=== PATIENT | male | born 1960 | race Caucasian/White ===

== ENCOUNTER 2018-05-16 10:11 | Emergency (ER) | payer OTHER ==
[2018-05-16 10:53] LABS: BASO # 0.1 10^3/uL (0.0-0.2); BASO % 1.1 % (0.0-1.0); EOS # 0.2 10^3/uL (0.0-0.50); EOS % 2.5 % (0.0-3.0); HEMATOCRIT 43.7 % (42.0-52.0); IMMATURE GRANULOCYTE % 0.4 % (0-3.0); LYMPH # 1.6 10^3/uL (1.5-4.5); LYMPH % 20.9 % (24.0-44.0); MEAN CORPUSCULAR HEMOGLOBIN 30.3 pg (27.0-33.0); MEAN CORPUSCULAR VOLUME 94.6 fl (80.0-96.0); MONO # 0.5 10^3/uL (0.0-0.8); MONO % 6.3 % (0.0-5.0); NEUTROPHILS # 5.2 10^3/uL (1.8-7.7); NEUTROPHILS % 68.8 % (36.0-66.0); PLATELET COUNT, AUTOMATED 219 10^3/uL (150-450); RED BLOOD COUNT 4.62 10^6/uL (4.30-6.10); RED CELL DISTRIBUTION WIDTH 13.7 % (11.5-14.5); WHITE BLOOD COUNT 7.5 10^3/uL (4.0-10.0)
[2018-05-16 11:14] LABS: ANION GAP 7 MEQ/L (8-16); BLOOD UREA NITROGEN 13 MG/DL (7-18); CALCIUM LEVEL 8.4 MG/DL (8.5-10.1); CARBON DIOXIDE LEVEL 27 MEQ/L (21-32); CHLORIDE LEVEL 109 MEQ/L (98-107); GLOMERULAR FILTRATION RATE > 60.0 (>56); GLUCOSE, FASTING 189 MG/DL (70-100); POTASSIUM SERUM 4.2 MEQ/L (3.5-5.1); SODIUM LEVEL 143 MEQ/L (136-145)
[2018-05-16 11:18] LABS: LACTIC ACID SEPSIS PROTOCOL 1.7 MMOL/L (0.4-2.0)
== END 2018-05-16 11:55 | disposition home or self-care (01) ==
LOC: M ED 10:11
DX: L02.416 Cutaneous abscess of left lower limb (principal); Z86.718 Personal history of other venous thrombosis and embolism; Z79.899 Other long term (current) drug therapy; Z79.01 Long term (current) use of anticoagulants; Z88.0 Allergy status to penicillin; Z88.5 Allergy status to narcotic agent; Z88.8 Allergy status to other drugs, medicaments and biological substances
CPT/HCPCS: 83605

== ENCOUNTER → 2018-05-20 | Outpatient (CLI) | payer OTHER ==
[2018-05-20 14:50] LABS: INR 1.36
== END ==
LOC: M LAB 14:11
DX: Z86.718 Personal history of other venous thrombosis and embolism (principal)
CPT/HCPCS: 85610

== ENCOUNTER → 2018-08-01 | Outpatient (CLI) | payer OTHER | LOC: M RAD 13:38 | DX: I87.312 Chronic venous hypertension (idiopathic) with ulcer of left lower extremity (principal); I82.512 Chronic embolism and thrombosis of left femoral vein; L97.929 Non-pressure chronic ulcer of unspecified part of left lower leg with unspecified severity | CPT/HCPCS: 93971 ==

== ENCOUNTER → 2018-09-14 | Outpatient (REF) | payer OTHER ==
[~2018-09-14] MED LIST: CLEO300C2 PO; DURA50DI2; OMEP40CA2; OXYB10TA; OXYCOD/APAP; PROBCAP2 PO; XARE10TA
[2018-09-14 12:14] LABS: APPEARANCE, URINE CLEAR (CLEAR); BACTERIA, URINE AUTO NEGATIVE (NEGATIVE); BILIRUBIN, URINE AUTO NEGATIVE (NEGATIVE); BLOOD, URINE BLOOD NEGATIVE (NEGATIVE); COLOR, URINE YELLOW (YELLOW); GLUCOSE, URINE (UA) AUTO NEGATIVE (NEGATIVE); KETONE, URINE AUTO NEGATIVE (NEGATIVE); LEUKOCYTE ESTERASE, URINE AUTO NEGATIVE (NEGATIVE); MUCUS, URINE SMALL (NEGATIVE); NITRITE, URINE AUTO NEGATIVE (NEGATIVE); PROTEIN, URINE AUTO NEGATIVE (NEGATIVE); RBC, URINE AUTO 0 /HPF (0-3); SQUAMOUS EPITHELIAL CELL UR AU 0 /HPF (0-6); UROBILINOGEN, URINE AUTO 0.2 mg/dL (0.0-2.0); WBC, URINE AUTO 1 /HPF (0-3)
[2018-09-14 12:38] LABS: MALB URINE SIEMENS 9.3 MG/L; MAU/CREAT RATIO 5.5 MCG/MG (0.0-30.0)
== END ==
LOC: M SFHCPLAZ 11:23
PROVIDERS: ATTEND Family Medicine
DX: R30.0 Dysuria (principal); E11.69 Type 2 diabetes mellitus with other specified complication

== ENCOUNTER → 2018-09-15 | Outpatient (REF) | payer OTHER ==
[2018-09-15 12:57] LABS: BASO # 0.1 10^3/uL (0.0-0.2); EOS # 0.2 10^3/uL (0.0-0.50); EOS % 2.6 % (0.0-3.0); HEMATOCRIT 43.4 % (42.0-52.0); HEMOGLOBIN 14.1 g/dl (13.5-17.5); LYMPH % 24.8 % (24.0-44.0); MEAN CORPUSCULAR HGB CONC 32.5 g/dl (32.0-36.5); MEAN CORPUSCULAR VOLUME 92.3 fl (80.0-96.0); MONO # 0.6 10^3/uL (0.0-0.8); MONO % 7.2 % (0.0-5.0); NEUTROPHILS # 5.1 10^3/uL (1.8-7.7); NEUTROPHILS % 64.1 % (36.0-66.0); PLATELET COUNT, AUTOMATED 263 10^3/uL (150-450); WHITE BLOOD COUNT 7.9 10^3/uL (4.0-10.0)
[2018-09-15 13:15] LABS: CHOLESTEROL RISK RATIO 3.628 (<5); FREE T4 1.02 NG/DL (0.76-1.46); PROSTATIC SPECIFIC AG MONITOR 0.26 NG/ML (< 4.00); THYROID STIMULATING HORMONE 0.797 uIU/ML (0.358-3.740)
[2018-09-15 13:40] LABS: HEMOGLOBIN A1c 7.9 %
[2018-09-15 15:25] LABS: TOTAL 25(OH) VITAMIN D 34.5 NG/ML (30.0-100.0)
[2018-09-16 14:42] LABS: ANTINUCLEAR ANTIBODIES DIRECT Negative (Negative)
== END ==
LOC: M SFHCPLAZ 09:17
PROVIDERS: ATTEND Family Medicine
DX: M32.9 Systemic lupus erythematosus, unspecified (principal); R53.82 Chronic fatigue, unspecified; E11.69 Type 2 diabetes mellitus with other specified complication; Z13.220 Encounter for screening for lipoid disorders; Z85.46 Personal history of malignant neoplasm of prostate

== ENCOUNTER → 2018-09-28 | Outpatient (CLI) | payer OTHER ==
[2018-09-28 14:20] LABS: BLOOD UREA NITROGEN 11 MG/DL (7-18); CALCIUM LEVEL 8.7 MG/DL (8.5-10.1); CARBON DIOXIDE LEVEL 32 MEQ/L (21-32); CHLORIDE LEVEL 103 MEQ/L (98-107); CREATININE FOR GFR 0.93 MG/DL (0.70-1.30); GLOMERULAR FILTRATION RATE > 60.0 (>56); GLUCOSE, FASTING 164 MG/DL (70-100); POTASSIUM SERUM 4.6 MEQ/L (3.5-5.1); SODIUM LEVEL 139 MEQ/L (136-145)
== END ==
LOC: M SMT 10:34
PROVIDERS: ATTEND Nurse Practitioner Women's Health
DX: R97.21 Rising PSA following treatment for malignant neoplasm of prostate (principal)

== ENCOUNTER → 2018-10-06 | Outpatient (CLI) | payer OTHER ==
--- NOTE | 2018-10-06 13:15 | REP ---
LOW DOSE LUNG SCREENING CT: Low dose lung screening CT exam performed in the axial plane. Lung windows are evaluated. There are no prior studies. There is mild scattered interstitial fibrosis bilaterally. Tiny subpleural nodular opacity in the region of the superior segment of the right lower lobe measures 3 mm and is not of clinical significance. There is fissural thickening inferiorly and laterally on the left. No suspicious nodular opacities of consolidation is seen. Heart is normal in size. Thoracic aorta is normal in caliber with no aneurysm. Mediastinal contours are unremarkable. There are degenerative changes of the spine. Incidental note is made of a cyst of the upper pole of the left kidney as seen on prior CT of the abdomen 01/30/2016. IMPRESSION: ACR [address] No suspicious nodule. A 3 mm subpleural nodular density in the region of the superior segment of the right lower lobe is not of clinical significance. Followup low dose lung screening CT recommended in 12 months. Electronically Signed by Rikki Estes MD 10/07/2018 10:19 A
== END ==
LOC: M RAD 10:47
PROVIDERS: ATTEND Family Medicine
DX: Z12.2 Encounter for screening for malignant neoplasm of respiratory organs (principal); F17.210 Nicotine dependence, cigarettes, uncomplicated; N28.1 Cyst of kidney, acquired; R91.1 Solitary pulmonary nodule; M47.9 Spondylosis, unspecified

== ENCOUNTER → 2018-10-17 | Outpatient (CLI) | payer OTHER ==
[~2018-10-17] MED LIST changes: +ISOVUE-370 76% 100ML VIAL (Q9967) As Ordered ONE
--- NOTE | 2018-10-17 10:41 | REP ---
Clinical: History of prostate cancer with rising PSA levels. Technique: Axial contrast enhanced images from the lung bases to the pubic symphysis using 100 ml Isovue 370 intravenous contrast material with precontrast and delayed images of the abdomen as well as coronal and sagittal re-formations. Comparison: 01/30/2016. Findings: Lung bases are clear. Visualized heart and pericardium normal. Diffuse fatty infiltration to the liver noted without focal hepatic lesion identified. Spleen, pancreas, gallbladder, and bilateral adrenal glands are normal. Kidneys demonstrate simple bilateral cysts measuring up to 6 cm in left kidney and 4.2 cm in the right kidney. The enteric system is without obstruction or acute inflammatory process. There is evidence for ventral hernia repair. Normal terminal ileum and appendix are identified in the right lower quadrant. Scattered colonic and sigmoid diverticulosis noted without acute diverticulitis. Pelvis demonstrates normal bladder and evidence for prior prostatectomy. No ascites. No free air. No intraperitoneal or significant retroperitoneal adenopathy is appreciated. Atherosclerotic changes to the aorta and vasculature noted without aneurysm or dissection. Prominent bilateral inguinal adenopathy (left greater than right) with enhancing lymph nodes measuring up to 2.3 cm diameter and suspicious for underlying pathology. The musculoskeletal structures demonstrate diffuse degenerative changes primarily involving the thoracolumbar spine and pelvis/hips without obvious focal osseous abnormality identified. Impression: 1. Bilateral inguinal adenopathy (left greater than right) requires further evaluation. 2. No further evidence for recurrence or metastasis identified. Specifically, no ascites, no focal mass lesion, and no new significant intraperitoneal or retroperitoneal adenopathy noted. 3. Hepatic steatosis without focal hepatic lesion. 4. Large bilateral simple renal cysts. 5. Colonic diverticulosis without acute diverticulitis. Electronically Signed by Cristian Verma MD 10/17/2018 10:32 A
--- NOTE | 2018-10-17 17:16 | REP ---
Whole body radionuclide bone scan: History: Rising PSA level. Prostate malignancy. Pelvic and perineal pain. No comparison bone scan. Technique: 20.4 mCi technetium 99m MDP is injected and standard whole body bone scan imaging was acquired. Scintigraphic findings: Photopenia is noted associated with a right knee arthroplasty. There is arthritic uptake in the left knee medially and laterally. Minimal arthritic uptake is seen in the hips. There is intense increased uptake in three linearly opposed anterior ribs on the right involving rib numbers 3, 4, and 5. These are consistent with healing fractures. There is some degenerative uptake in the posterior facets in the mid cervical spine on the left consistent with osteoarthritis. There is uptake in bilateral kidneys and in the urinary bladder. There is no evidence to suggest skeletal metastatic disease. Degenerative spondylosis uptake is seen in the lumbar spine. Impression: No evidence to suggest skeletal metastasis. Electronically Signed by Adolfo Heaton MD 10/17/2018 05:47 P
== END ==
LOC: M RAD 09:18
PROVIDERS: ATTEND Nurse Practitioner Women's Health
DX: K76.0 Fatty (change of) liver, not elsewhere classified (principal); N28.1 Cyst of kidney, acquired; R59.0 Localized enlarged lymph nodes; R10.2 Pelvic and perineal pain; Z85.46 Personal history of malignant neoplasm of prostate; K57.30 Diverticulosis of large intestine without perforation or abscess without bleeding
CPT/HCPCS: 74178; Q9967

== ENCOUNTER → 2018-11-10 | Outpatient (CLI) | payer OTHER ==
[~2018-11-10] MED LIST changes: +COMBAER6 INH; -DURA50DI2; +DURA50DI2 TOP; -ISOVUE-370 76% 100ML VIAL (Q9967) As Ordered ONE; -OMEP40CA2; +OMEP40CA2 PO; -OXYB10TA; +OXYB10TA PO; +PERCOCET PO; +SALMDISK INH; +SPIR1CAP INH; -XARE10TA; +XARE10TA PO
--- NOTE | 2018-11-14 12:38 | RADONC ---
RADIATION ONCOLOGY CONSULTATION NOTE DATE: 11/10/2018 CHART NUMBER: [id number] DIAGNOSIS: Prostate cancer. STAGE: Recurrent. ECOG PERFORMANCE STATUS: Zero. CONSULTATION NOTE: Mr. Dumas is a 58-year-old white male with the diagnosis of what appears to be a recurrent stage III C, T2c, N0, M0, Howland score 9 (4-5), grade group 5 adenocarcinoma of the prostate with an initial PSA score of 5.07, who underwent a robotic-assisted laparoscopic radical prostatectomy on 06/05/2015 and is now presenting for what is thought to be a biochemical recurrence. HISTORY OF PRESENT ILLNESS: The patient was in his usual state of health until routine PSA was done on 03/05/2015 and found to be 5.07. On 04/24/2015, the patient underwent prostatic needle biopsy and pathology revealed a Howland score 9 (4-5) adenocarcinoma of the prostate involving multiple biopsy sites on the right. Biopsies of the left side of the prostate showed no evidence of malignancy. On 06/05/2015, the patient underwent a da True robotic-assisted laparoscopic radical prostatectomy as well as pelvic lymph node dissection. Pathology revealed at that time a Howland score 7 (4-3) adenocarcinoma with tertiary grade 5 adenocarcinoma in the prostate bilaterally. The tumor was bilateral multifocal. Approximately 25% of the specimen had tumor in it. There was no evidence of extraprostatic extension. There was no evidence of lymph vascular invasion. All surgical margins were negative. Peripheral margin was negative but the tumor was less than 1 mm from the inked margin of resection. Seminal vesicles were negative for malignancy as were the vas deferens. A total of eight right pelvic lymph nodes were sampled and were negative for malignancy and a total of seven left pelvic lymph nodes were sampled and were also negative for malignancy. The patient reports that he has had severe pain and suffering since his laparoscopic surgery 4 years ago. He has been on Fentynl patches and oxycodone since. Apparently, he has been somewhat lost to followup and I do not have any of his subsequent PSA studies except for the most recent. Apparently, the patient was transferred to the care of Claude Garrido MD, our urologist and a PSA was done on 09/15/2018 that turned out to be 0.26. A bone scan was done on 10/17/2014 that showed no evidence of metastatic disease, and on 10/17/[address] of abdomen and pelvis, which showed no evidence of recurrence or pelvic disease. There was some bilateral inguinal lymphadenopathy present with left greater than the right. This was read as somewhat suspicious. The patient and his report that he has had shiny palpable lymph nodes in the inguinal regions bilaterally which have come and gone since his surgery and right now are no longer palpable. He reports that these have not changed and are nontender. PAST MEDICAL HISTORY: The patient's past medical history is positive for arthritis, diabetes and DVTs. He reports that he had a hernia repair in 2016. He also had one in 2015. He had some right shoulder rotator cuff repair in 2013 and in 2010, he had a left shoulder rotator cuff repair. He also reports that he had carpal tunnel surgery done in both hands and in 1997 had a total right knee replacement. He reports that he had a left hand surgery in 1992. ALLERGIES: The patient is allergic to TRAMADOL, PENICILLIN, MORPHINE, HYDROCODONE, GABAPENTIN, METFORMIN, and JANUVIA. SOCIAL HISTORY: The patient continues to smoke cigars every day. He had been smoking four packs of cigarettes per day for 40 years. He reports that he does not abuse alcohol. FAMILY HISTORY: The patient's family history is positive for a mother with skin cancer and father with prostate cancer. REVIEW OF SYSTEMS: The patient is clicked every box on review of systems. He reports anorexia and a 70-pound weight loss over 4 years. He reports continuous lower abdominal and pelvic pain. He reports his skin problems and indeed has multiple sores over his whole body. He reports headaches, chest pain, weakness in the arms and legs, fevers and chills, decreased energy, hearing loss, pains all over his body, pains in his joints, swollen glands, shortness of breath, discomfort upon urination, and frequent urination. PHYSICAL EXAMINATION: The patient is a well-developed, well-nourished white male, in no acute distress, who is presenting to us today. He has multiple excoriations of the skin of his arms and entire body. HEENT exam is normocephalic, atraumatic. Extraocular movements are intact. There is no palpable cervical, supraclavicular, infraclavicular or inguinal lymphadenopathy present. Lungs: Clear to auscultation and percussion. His heart has regular rate and rhythm. His abdomen is benign with no hepatosplenomegaly, masses or tenderness. Rectal examination reveals a normal anal sphincter tone. His prostate bed is smooth with no evidence of nodularity. Extremities reveal no clubbing, cyanosis or edema. ASSESSMENT: Mr. Dumas is presenting to us today now with what appears to have originally been a very high grade prostatic adenocarcinoma status post resection with negative margins, negative lymph nodes, negative seminal vesicles and no extracapsular extension. At this time, I do not have a complete picture of this patient. I have only one PSA level, which was 0.26, done on 09/15/2018. I have no PSA studies done from the time of surgery onward. I have no physician notes from the time of surgery onward until he was seen by our Dr. Garrido. In light of this, I have ordered a new PSA to be done today, which may help us to see whether or not it is rising. It is now 2 months since his previous PSA. In addition, I will try and obtain previous studies from Dr. Garrido's office as well as his previous urologist offices as well. I suspect from the note from Dr. Garrido that this has been a rising PSA level and I was simply not privy at this time to all the documentation. Assuming this patient does have a biochemical failure with a rising PSA level, he would qualify as a candidate for postoperative radiation therapy in attempt to increase the likelihood of achieving local control. I did discuss with the patient in detail the potential benefits as well as possible acute and chronic sequelae of external beam radiation therapy. We discussed logistics of treatment planning, simulation subsequent fractionated daily radiation treatments. I have asked our nurse to obtain further information on this patient with regards to his followup post surgery. I am quite concerned with the level of narcotics this patient has been taking for the last 4-5 years. He has had a laparoscopic surgery 4 years ago and since has been on fentynal patches as well as oxycodone. 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 I do not think that this is a good option for this patient. I am unsure as to the reason for his pain and during his course of treatment will see about setting him up perhaps with some type of pain management clinic. My concern highlights the fact that radiation will be given to this region increasing discomfort. This may lead to poor compliance with our radiation regimen. Thank you for allowing us to participate in the care of this very pleasant gentleman. I will look forward with working with you closely in his care. As always, warm regards. cc: MD Johanne Prajapati MD MTDD
== END ==
LOC: M ONCR 09:01
PROVIDERS: ATTEND Radiology Radiation Oncology
DX: C61 Malignant neoplasm of prostate (principal)

== ENCOUNTER → 2018-11-16 | Outpatient (CLI) | payer OTHER ==
--- NOTE | 2018-11-16 14:36 | PFTRPT ---
Height: 70.00 Inches Weight: 235.00 Lbs BSA: 2.24 Diagnosis: J44.9 DATE OF PROCEDURE: 11/16/2018 ORDERED BY: Johanne Gonzalez MD Spirometry: Pre and post bronchodilator study of excellent technical quality. Forced vital capacity reduced. FEV1 out of proportion. Obstructive index is, therefore, reduced. Flow Volume Loop: Expiratory limb of the flow volume loop consistent with flow rate limitation. Only borderline bronchodilator response identified. Lung Volumes: Total lung capacity mildly elevated. Residual volume consistent with air trapping. Diffusing Capacity: Diffusing capacity significantly reduced and does not completely correct for alveolar volume. Hemoglobin: No hemoglobin available for correction. Airway Mechanics: Airway resistance elevated with a concomitant decrease in airway conductance. IMPRESSION: Mild obstructive ventilatory impairment with underlying air trapping and diffusing capacity impairment. Please correlate clinically. MTDD
== END ==
LOC: M CARPUL 13:51
PROVIDERS: ATTEND Family Medicine
DX: J44.9 Chronic obstructive pulmonary disease, unspecified (principal)

== ENCOUNTER → 2018-11-22 | Outpatient (CLI) | payer OTHER ==
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
== END ==
LOC: M PAIN 09:00
PROVIDERS: ATTEND Anesthesiology
DX: M25.511 Pain in right shoulder (principal); M25.512 Pain in left shoulder; G89.29 Other chronic pain; M17.12 Unilateral primary osteoarthritis, left knee; E11.9 Type 2 diabetes mellitus without complications; J44.9 Chronic obstructive pulmonary disease, unspecified; K21.9 Gastro-esophageal reflux disease without esophagitis; F17.210 Nicotine dependence, cigarettes, uncomplicated; Z79.01 Long term (current) use of anticoagulants; Z79.891 Long term (current) use of opiate analgesic; Z79.899 Other long term (current) drug therapy; Z88.0 Allergy status to penicillin; Z88.5 Allergy status to narcotic agent; Z88.8 Allergy status to other drugs, medicaments and biological substances; Z91.09 Other allergy status, other than to drugs and biological substances; Z85.46 Personal history of malignant neoplasm of prostate; Z87.820 Personal history of traumatic brain injury

== ENCOUNTER → 2018-12-20 | Outpatient (RCR) | payer OTHER ==
[2018-11-21 13:29] LABS: HEMATOCRIT 42.6 % (42.0-52.0); HEMOGLOBIN 13.8 g/dl (13.5-17.5); LYMPH % 19.1 % (24.0-44.0); MEAN CORPUSCULAR HEMOGLOBIN 30.5 pg (27.0-33.0); MEAN CORPUSCULAR HGB CONC 32.4 g/dl (32.0-36.5); MEAN CORPUSCULAR VOLUME 94.1 fl (80.0-96.0); NEUTROPHILS # 5.9 10^3/uL (1.8-7.7); NEUTROPHILS % 74.3 % (36.0-66.0); RED BLOOD COUNT 4.53 10^6/uL (4.30-6.10); WHITE BLOOD COUNT 7.9 10^3/uL (4.0-10.0)
--- NOTE | 2018-11-22 14:28 | RADONC ---
RADIATION ONCOLOGY SIMULATION NOTE DATE: 11/21/2018 CHART NUMBER: [id number] SIMULATION NOTE: Mr. Dumas was taken to the CT scan for CT simulation of his prostate field. CT was accomplished without difficulty or discomfort. Radiation treatment planning is underway and radiation treatments will begin subsequently. An immobilization device was created and will be used throughout the course of treatment. It was created without difficulty or discomfort. I was physically present throughout the course of simulation.
--- NOTE | 2018-12-14 11:12 | RADONC ---
RADIATION ONCOLOGY PROGRESS NOTE DATE: 12/13/2018 CHART NUMBER: [id number] PROGRESS NOTE: Mr. Dumas is presently at a dose of 1260 cGy to his prostate bed and is tolerating treatments quite well at this point with no complaints other than fatigue related to his radiation therapy. He is having no increased difficulty with urination or bowel movements. REVIEW OF SYSTEMS: The patient's review of systems is noncontributory except for fatigue. Denies nausea, vomiting, fevers, chills, night sweats, diplopia, headaches, anxiety or depression, anorexia, weight loss, visual disturbances, chest pain, urinary or bowel difficulties, bone pain, or neurological problems. PHYSICAL EXAMINATION: The patient's skin is in good condition with no evidence of moist or dry desquamation. The remainder of his physical exam remains unchanged. Mr. Dumas is tolerating treatments quite well and radiation will continue as scheduled.
[2018-12-19 11:20] LABS: APPEARANCE, URINE HAZY (CLEAR); BACTERIA, URINE AUTO NEGATIVE (NEGATIVE); BILIRUBIN, URINE AUTO NEGATIVE (NEGATIVE); BLOOD, URINE BLOOD 1+ (NEGATIVE); COLOR, URINE YELLOW (YELLOW); GLUCOSE, URINE (UA) AUTO NEGATIVE (NEGATIVE); KETONE, URINE AUTO NEGATIVE (NEGATIVE); LEUKOCYTE ESTERASE, URINE AUTO TRACE (NEGATIVE); MUCUS, URINE SMALL (NEGATIVE); NITRITE, URINE AUTO NEGATIVE (NEGATIVE); PROTEIN, URINE AUTO NEGATIVE (NEGATIVE); RBC, URINE AUTO 4 /HPF (0-3); SPECIFIC GRAVITY URINE AUTO 1.025 (1.002-1.035); SQUAMOUS EPITHELIAL CELL UR AU 0 /HPF (0-6); WBC, URINE AUTO 13 /HPF (0-3)
--- NOTE | 2018-12-21 08:09 | RADONC ---
RADIATION ONCOLOGY PROGRESS NOTE DATE: 12/19/2018 CHART NUMBER: [id number] PROGRESS NOTE: Mr. Dumas is presently at a dose of 1980 cGy to his prostate bed and is complaining of urinary frequency and burning. REVIEW OF SYSTEMS: The patient's review of systems is positive for urinary burning but is otherwise noncontributory. Denies nausea, vomiting, fevers, chills, night sweats, diplopia, headaches, anxiety or depression, anorexia, weight loss, visual disturbances, chest pain, urinary or bowel difficulties, bone pain, or neurological problems. PHYSICAL EXAMINATION: The patient's skin is in good condition with no evidence of moist or dry desquamation. The remainder of his physical exam remains unchanged. Mr. Dumas is tolerating treatments quite well and radiation will continue as scheduled.
== END ==
LOC: M ONCR 11-21 13:01
PROVIDERS: ATTEND Radiology Radiation Oncology
DX: C61 Malignant neoplasm of prostate (principal)

== ENCOUNTER → 2019-01-20 | Outpatient (RCR) | payer OTHER ==
--- NOTE | 2018-12-26 11:33 | RADONC ---
RADIATION ONCOLOGY PROGRESS NOTE DATE: 12/26/2018 CHART NUMBER: [id number] PROGRESS NOTE: Mr. Dumas is presently at a dose of 2880 cGy to his prostate bed and is tolerating treatments quite well at this point with no new complaints related to his radiation therapy. He continues to complain of pelvic pain, which has gone on since his surgery, for which he has taken fentynal patches and multiple other narcotics for the past several years. This is not new. REVIEW OF SYSTEMS: The patient's review of systems is noncontributory. Denies nausea, vomiting, fevers, chills, night sweats, diplopia, headaches, anxiety or depression, anorexia, weight loss, visual disturbances, chest pain, urinary or bowel difficulties, bone pain, or neurological problems. PHYSICAL EXAMINATION: The patient's skin is in good condition with no evidence of radiation change present. There is no moist or dry desquamation. The remainder of the physical exam remains unchanged. Mr. Dumas is tolerating treatments quite well and radiation will continue as scheduled.
--- NOTE | 2019-01-02 14:07 | RADONC ---
RADIATION ONCOLOGY PROGRESS NOTE DATE: 01/02/2019 CHART NUMBER: [id number] Mr. Dumas, with adenocarcinoma of the prostate, is currently receiving local regional radiotherapy. His current dose is 3780 cGy of an anticipated 6660 cGy. The patient notes some minimal irritation, but basically no significant untoward side effects. REVIEW OF SYSTEMS: He denies any nausea, vomiting, diarrhea. He does have some minimal dysuria but denies hematuria or blood per rectum. His energy level is such that he is able to maintain most day-to-day activities without any alteration of his lifestyle. Skin irritation is denied. EXAMINATION FINDINGS: The skin within the irradiated volume shows neither erythema nor desquamation. The remainder of the physical examination is unchanged. IMPRESSION: Tolerating therapy well. PLAN: Treatments to continue. MTDD
--- NOTE | 2019-01-09 11:08 | RADONC ---
RADIATION ONCOLOGY PROGRESS NOTE DATE OF SERVICE: 01/09/2019 CHART NUMBER: [id number]. PROGRESS NOTE: Mr. Dumas is presently at a dose of 4680 cGy to his prostate bed and is tolerating treatments quite well at this point with no complaints related to his radiation therapy. He is having no urinary or bowel difficulties. No bone pain. REVIEW OF SYSTEMS: The patient's review of systems is noncontributory. He denies nausea, vomiting, fevers, chills, night sweats, diplopia, headaches, anxiety or depression, anorexia, weight loss, visual disturbances, chest pain, urinary or bowel difficulties, bone pain, or neurological problems. PHYSICAL EXAMINATION: The patient's skin is in good condition with no evidence of moist or dry desquamation. The remainder of his physical exam remains unchanged. Mr. Dumas is tolerating treatments quite well, and radiation will continue as scheduled.
--- NOTE | 2019-01-17 10:49 | RADONC ---
RADIATION ONCOLOGY PROGRESS NOTE DATE: 01/17/2019 CHART NUMBER: [id number] PROGRESS NOTE: Mr. Dumas is presently at a dose of 5580 cGy to his prostate bed and is tolerating treatments quite well at this point with no significant difficulties related to his radiation therapy other than some skin discomfort. REVIEW OF SYSTEMS: The patient's review of systems is positive for skin discomfort but is otherwise noncontributory. Denies nausea, vomiting, fevers, chills, night sweats, diplopia, headaches, anxiety or depression, anorexia, weight loss, visual disturbances, chest pain, urinary or bowel difficulties, bone pain, or neurological problems. PHYSICAL EXAMINATION: The patient's skin shows some erythema present and there is a small area of dry desquamation present as well. The remainder of his physical exam remains unchanged. Ms. Dumas is tolerating treatments quite well and radiation will continue as scheduled.
== END ==
LOC: M ONCR 12-21 10:06
PROVIDERS: ATTEND Radiology Radiation Oncology
DX: C61 Malignant neoplasm of prostate (principal)

== ENCOUNTER 2019-01-25 09:52 | Outpatient (RCR) | payer OTHER ==
--- NOTE | 2019-01-23 12:45 | RADONC ---
RADIATION ONCOLOGY PROGRESS NOTE DATE: 01/23/2019 CHART NUMBER: [id number] Mr. Dumas, with a diagnosis of adenocarcinoma of prostate, is currently receiving local regional radiotherapy and his dose thus far is 6300 cGy of an anticipated 6660 cGy to the prostate bed. Treatments are actually going fairly well. REVIEW OF SYSTEMS: He denies any nausea, vomiting, diarrhea, dysuria, hematuria or blood per rectum. His energy level is such that he is able to maintain most day-to-day activities without any alteration of his lifestyle. Skin irritation is noted in the posterior aspect of the irradiated volume in is moderately symptomatic to the patient. He uses Silvadene cream daily. EXAMINATION FINDINGS: The skin within the irradiated volume shows some dry desquamation most prominent in the posterior aspect of the pelvis. The remainder of the physical examination is unchanged. IMPRESSION: Tolerating therapy well. Treatments to continue to completion (two more treatments left). PLAN: He was advised to continue the use of his Silvadene cream until his skin is healed.
--- NOTE | 2019-01-26 11:20 | RADONC ---
RADIATION ONCOLOGY TREATMENT SUMMARY DATE: 01/26/2019 CHART #: [id number] DIAGNOSIS: Prostate cancer. STAGE: Recurrent. ECOG PERFORMANCE STATUS: 0. RADIATION THERAPY TREATMENT SUMMARY: Plan of Radiotherapy: Local regional radiotherapy to the prostate bed for local regional control. Date radiotherapy started 12/05/2018. The radiotherapy completed 01/25/2019. Dose: The patient received a total of 6660 cGy administered in 37 fractions over 51 elapsed days. Prior to treatment delivery, localization was accomplished upon our CT simulator where upon treatment portals were defined by the use of multiple leaf collimators. The patient was initially treated to a total of 4500 cGy administered in 25 fractions over 32 elapsed days and thereafter gomez were reduced for an additional 2160 cGy, bringing the total dose to the aforementioned 6660 cGy. A 3-D conformal technique was utilized for treatment delivery and a 15 MV photon beam was employed for actual treatments. Status of Tumor: There was no evidence of local regional recurrence during his course of local regional radiotherapy nor was there clinical evidence of distant metastatic spread. Tolerance: In general, treatments were well tolerated as he denied any significant nausea, vomiting, diarrhea, dysuria, hematuria or blood per rectum. DISPOSITION: Return to clinic in 1 month for post radiotherapy followup visit and skin check. He was advised to return to his referring physicians as per their directions and instructions. Thank you for allowing us the opportunity of participation in the management of this very fine gentleman.
== END 2019-02-19 ==
LOC: M ONCR 09:52
PROVIDERS: ATTEND Radiology Radiation Oncology
DX: C61 Malignant neoplasm of prostate (principal)

== ENCOUNTER → 2019-01-31 | Outpatient (REF) | payer OTHER | LOC: M SFHCPLAZ 11:07 | PROVIDERS: ATTEND Family Medicine | DX: E11.69 Type 2 diabetes mellitus with other specified complication (principal) ==

== ENCOUNTER 2019-03-01 14:15 | Outpatient (RCR) | payer OTHER ==
[~2019-03-01 14:15] MED LIST changes: -OMEP40CA2 PO; +OMEP40CA97 PO; -OXYB10TA PO; +OXYB10TA23 PO
--- NOTE | 2019-03-13 14:51 | RADONC ---
RADIATION ONCOLOGY PROGRESS NOTE DATE: 03/10/2019 CHART NUMBER: [id number] PROGRESS NOTE: We obtained Mr. Dumas's urinalysis and culture and sensitivity. His urinalysis showed hazy urine with 2+ blood as well as 118 white blood cells. There was 2+ bacteria as well. The culture, however showed no growth. I called and spoke with our Director of Pathology, Dr. Ovalle and asked her how we could have bacteria on the sample but no growth. She said we should run a repeat of his urinalysis to check for contamination and other issues. I called the patient at home and asked him for a repeat urinalysis. I said that it can be done in [place] because it is simply a lab test, but the patient's insisted that they are driving back here today for repeat of his urinalysis and repeat culture and sensitivity. We will make these results available to his urologist, Dr. Garrido and will repeat his studies today and make further recommendations as indicated. cc: MD Johanne Prajapati MD
[2019-03-13] MEDS ORDERED: CELE1CAP9 (15:20)
[2019-03-13] MEDS ORDERED: CIPR-249 PO (21:37)
== END 2019-03-22 ==
LOC: M ONCR 14:15
PROVIDERS: ATTEND Radiology Radiation Oncology
DX: C61 Malignant neoplasm of prostate (principal)

== ENCOUNTER → 2019-03-08 | Outpatient (CLI) | payer OTHER ==
[~2019-03-08] MED LIST changes: +CELE1CAP9; +CIPR-249 PO; +OMEP40CA2 PO; -OMEP40CA97 PO; +OXYB10TA PO; -OXYB10TA23 PO
[2019-03-08 16:18] LABS: APPEARANCE, URINE HAZY (CLEAR); BACTERIA, URINE AUTO 2+ (NEGATIVE); BILIRUBIN, URINE AUTO NEGATIVE (NEGATIVE); BLOOD, URINE BLOOD 2+ (NEGATIVE); COLOR, URINE YELLOW (YELLOW); GLUCOSE, URINE (UA) AUTO NEGATIVE (NEGATIVE); KETONE, URINE AUTO NEGATIVE (NEGATIVE); LEUKOCYTE ESTERASE, URINE AUTO 3+ (NEGATIVE); MUCUS, URINE LARGE (NEGATIVE); NITRITE, URINE AUTO NEGATIVE (NEGATIVE); PROTEIN, URINE AUTO 2+ mg/dL (NEGATIVE); RBC, URINE AUTO 56 /HPF (0-3); SPECIFIC GRAVITY URINE AUTO 1.027 (1.002-1.035); SQUAMOUS EPITHELIAL CELL UR AU 0 /HPF (0-6); UROBILINOGEN, URINE AUTO 0.2 mg/dL (0.0-2.0); WBC, URINE AUTO 118 /HPF (0-3)
--- NOTE | 2019-03-10 15:55 | RADONC ---
RADIATION ONCOLOGY FOLLOWUP NOTE DATE: 03/08/2019 CHART NUMBER: [id number] DIAGNOSIS: Prostate cancer. STAGE: Recurrent. ECOG PERFORMANCE STATUS: 0 FOLLOWUP NOTE: Mr. Dumas is a 59-year-old white male with the diagnosis of what appears to be a stage III C, T2c, N0, M0, Pa[place]ack score 9 (4-5), grade group 5 adenocarcinoma of prostate with initial PSA score 5.07 who is presenting to us today for routine followup visit 1 month post completion of external beam radiation therapy. The patient comes in today with multiple complaints. He reports that his testicles are hurting him. He also reports that his buttock cheeks are swollen and very painful. In addition, he is complaining about blood in his urine and lower abdominal pain. Most of these complaints have been occurring since before he initiated radiation. Indeed many of these complaints have been going on since his initial surgery years ago. REVIEW OF SYSTEMS: The patient's review of systems is positive for the above, but is otherwise noncontributory. He denies nausea, vomiting, fevers, chills, night sweats, diplopia, headaches, anxiety or depression, anorexia, weight loss, visual disturbances, chest pain. PHYSICAL EXAMINATION: The patient is a well-developed, well-nourished male in no acute distress. HEENT exam is normocephalic, atraumatic. Extraocular movements are intact. There is no palpable cervical, supraclavicular, infraclavicular, axillary, or inguinal lymphadenopathy present. Lungs are clear to auscultation and percussion. Heart has a regular rate and rhythm. Abdomen is benign with no hepatosplenomegaly, masses, or tenderness. Rectal examination reveals a normal anal sphincter tone. His prostate is smooth with no evidence of nodularity. Skeletal examination reveals no tenderness to pressure or percussion of the bony skeleton. Extremities reveal no clubbing, cyanosis, or edema. Neurologic exam is grossly intact, as is the remainder of the physical examination. ASSESSMENT: The patient is clinically DAVE at this time. He is being followed closely by his urologist Dr. Garrido. In light of his close followup and monitoring by Dr. Garrido, I have discharged the patient from our followup except on a p.r.n. basis. I have ordered a urinalysis and culture and sensitivity to be undertaken to evaluate his report of having blood in his urine. Again, I will defer to the expertise of Dr. Garrido with regards to any intervention for this problem. cc: MD Johanne Prajapati MD
== END ==
LOC: M ONCR 15:13
PROVIDERS: ATTEND Radiology Radiation Oncology
DX: C61 Malignant neoplasm of prostate (principal)
CPT/HCPCS: 81001; 87086; G0463

== ENCOUNTER → 2019-03-10 | Outpatient (REF) | payer OTHER ==
[2019-03-10 15:10] LABS: APPEARANCE, URINE HAZY (CLEAR); BACTERIA, URINE AUTO NEGATIVE (NEGATIVE); BILIRUBIN, URINE AUTO NEGATIVE (NEGATIVE); BLOOD, URINE BLOOD 1+ (NEGATIVE); COLOR, URINE YELLOW (YELLOW); GLUCOSE, URINE (UA) AUTO NEGATIVE (NEGATIVE); KETONE, URINE AUTO NEGATIVE (NEGATIVE); LEUKOCYTE ESTERASE, URINE AUTO 1+ (NEGATIVE); MUCUS, URINE LARGE (NEGATIVE); NITRITE, URINE AUTO NEGATIVE (NEGATIVE); PROTEIN, URINE AUTO 2+ mg/dL (NEGATIVE); RBC, URINE AUTO 76 /HPF (0-3); SPECIFIC GRAVITY URINE AUTO 1.028 (1.002-1.035); SQUAMOUS EPITHELIAL CELL UR AU 0 /HPF (0-6); WBC, URINE AUTO 41 /HPF (0-3)
== END ==
LOC: M LAB REF 14:41
PROVIDERS: ATTEND Radiology Radiation Oncology
DX: R39.9 Unspecified symptoms and signs involving the genitourinary system (principal)

== ENCOUNTER 2019-03-13 15:07 | Emergency (ER) | payer OTHER ==
[~2019-03-13] VITALS: Ht 175.3 cm; Wt 105.9 kg
[~2019-03-13 15:07] MED LIST changes: -CELE1CAP9; -CIPR-249 PO; -OXYB10TA PO; +OXYB10TA2 PO
[2019-03-13] MEDS ORDERED: CELE1CAP9 (15:20)
[2019-03-13 16:44] LABS: BASO # 0.1 10^3/uL (0.0-0.2); BASO % 0.7 % (0.0-1.0); EOS # 0.2 10^3/uL (0.0-0.50); EOS % 2.9 % (0.0-3.0); HEMATOCRIT 44.4 % (42.0-52.0); HEMOGLOBIN 14.5 g/dl (13.5-17.5); LYMPH # 0.9 10^3/uL (1.5-4.5); LYMPH % 11.9 % (24.0-44.0); MEAN CORPUSCULAR HEMOGLOBIN 30.9 pg (27.0-33.0); MEAN CORPUSCULAR HGB CONC 32.7 g/dl (32.0-36.5); MEAN CORPUSCULAR VOLUME 94.7 fl (80.0-96.0); MONO # 0.5 10^3/uL (0.0-0.8); MONO % 6.7 % (0.0-5.0); NEUTROPHILS # 5.5 10^3/uL (1.8-7.7); NEUTROPHILS % 77.4 % (36.0-66.0); PLATELET COUNT, AUTOMATED 209 10^3/uL (150-450); RED BLOOD COUNT 4.69 10^6/uL (4.30-6.10); WHITE BLOOD COUNT 7.1 10^3/uL (4.0-10.0)
[2019-03-13 16:59] LABS: BLOOD UREA NITROGEN 13 MG/DL (7-18); CALCIUM LEVEL 8.9 MG/DL (8.5-10.1); CARBON DIOXIDE LEVEL 30 MEQ/L (21-32); CHLORIDE LEVEL 107 MEQ/L (98-107); CREATININE FOR GFR 0.83 MG/DL (0.70-1.30); GLOMERULAR FILTRATION RATE > 60.0 (>56); GLUCOSE, FASTING 130 MG/DL (70-100); POTASSIUM SERUM 4.1 MEQ/L (3.5-5.1); SODIUM LEVEL 143 MEQ/L (136-145)
[2019-03-13 17:30] LABS: C REACTIVE PROTEIN QUANTITATIV 0.87 MG/DL (0.00-0.30)
[2019-03-13] MEDS ORDERED: NS 1,000 ML IV ONE (17:45)
[2019-03-13 18:06] LABS: ERYTHROCYTE SEDIMENTATION RATE 32 mm/hr (0-20)
--- NOTE | 2019-03-13 19:21 | REPVR ---
EXAM: US Scrotum EXAM DATE/TIME: 03/13/2019 7:03 PM CLINICAL HISTORY: 59 years old, male; Scrotum pain; Prior surgery; Surgery date: 6+ months; Surgery type: Proctectomy; Additional info: Scrotal tender, prostate CA, urgency, dysuria TECHNIQUE: Imaging protocol: Real-time ultrasound of the scrotum and contents with color Doppler and image documentation. COMPARISON: Scrotal, US 01/30/2016 9:07 PM FINDINGS: Right testicle measures 4.2 x 1.6 x 2.8 cm in size. Right testicle appears homogeneous with no focal mass. Normal Doppler flow is present within the right testicle. Left testicle measures 3.5 x 1.5 x 2.3 cm in size. Left testicle appears homogeneous with no focal mass. Normal Doppler flow is present within the left testicle. Right and left epididymis are symmetric and have normal Doppler flow. Mild bilateral varicocele Physiologic fluid volume within the scrotal sac. No bowel-containing hernia sac within the scrotum. IMPRESSION: No intratesticular pathology or evidence of torsion. Prominent scrotal vessels with slight increase on Valsalva maneuver suggesting mild varicoceles Electronically signed by: Michael Lee On 03/13/2019 19:21:25 PM
--- NOTE | 2019-03-13 19:28 | REPVR ---
EXAM: US Pelvis Limited, Male EXAM DATE/TIME: 03/13/2019 7:03 PM CLINICAL HISTORY: 59 years old, male; Bladder; Hematuria and incontinence; Continuous leakage; Prior surgery; Surgery date: 6+ months; Surgery type: Proctectomy; Additional info: Scrotal tender, prostate CA, urgency, dysuria TECHNIQUE: Imaging protocol: Real-time pelvic ultrasound with image documentation. COMPARISON: CT ABD PELVIS W/O FOL BY WIT 10/17/2018 9:48 AM FINDINGS: Bladder measures 6.1 x 5.0 x 4.0 cm with no focal wall thickening or intraluminal filling defect. Post void, the bladder measures 3.8 x 3.3 x 2.8 cm, with calculated post void volume of 24 cc The patient has undergone prior prostatectomy IMPRESSION: Unremarkable ultrasound of the bladder. Post void residual 24 cc Electronically signed by: Michael Lee On 03/13/2019 19:28:19 PM
[2019-03-13 19:39] VITALS: BP 140/77
[2019-03-13] MEDS ORDERED: ISOVUE-370 76% 100ML VIAL (Q9967) As Ordered ONE (20:20)
--- NOTE | 2019-03-13 21:27 | REPVR ---
EXAM: CT Pelvis With Contrast EXAM DATE/TIME: 03/13/2019 8:41 PM CLINICAL HISTORY: 59 years old, male; Pelvic pain; Prior surgery; Additional info: Suprapubic pain, penile, scrotal tender, prostate CA TECHNIQUE: Imaging protocol: Axial computed tomography images of the pelvis with intravenous contrast. Coronal and sagittal reformatted images were created and reviewed. Radiation optimization: All CT scans at this facility use at least one of these dose optimization techniques: automated exposure control; mA and/or kV adjustment per patient size (includes targeted exams where dose is matched to clinical indication); or iterative reconstruction. Contrast material: ISOVUE 370; Contrast volume: 100 ml; Contrast route: IV COMPARISON: CT ABD PELVIS W/O FOL BY WIT 10/17/2018 9:48 AM FINDINGS: Ventral hernia repair mesh is present bilaterally and at the level of the umbilicus. No recurrent bowel containing hernia or complication. Bladder appears normal. No effacement of normal fat planes in the ischiorectal fossa. No organized fluid collection suggestive of abscess. Diverticular changes are present within the colon without inflammation. Normal-appearing retrocecal appendix is identified, without inflammation. Prostatectomy changes are present. No pelvic side wall nodes. Bony structures show no acute fracture or destructive process. Degenerative changes are seen in the lumbar spine with disc height loss, endplate osteophytes and hypertrophic facet arthropathy. IMPRESSION: No explanation for suprapubic pain and scrotal tenderness. Prior prostatectomy changes without evidence of pelvic sidewall lymphadenopathy or pelvic metastatic disease. Electronically signed by: Michael Lee On 03/13/2019 21:26:56 PM
[2019-03-13] MEDS ORDERED: CIPR-249 PO (21:37)
[2019-03-13] MEDS ORDERED: CIPROFLOXACIN 500 MG TAB PO ONE (21:45)
[2019-03-13 22:17] LABS: CHLAMYDIA DNA AMPLIFICATION NEGATIVE (NEGATIVE); GC DNA AMPLIFICATION NEGATIVE (NEGATIVE)
== END 2019-03-13 21:54 | disposition home or self-care (01) ==
LOC: M ED 15:07
DX: R30.0 Dysuria (principal); R10.2 Pelvic and perineal pain; N50.819 Testicular pain, unspecified; E11.9 Type 2 diabetes mellitus without complications; J44.9 Chronic obstructive pulmonary disease, unspecified; Z79.899 Other long term (current) drug therapy; Z88.0 Allergy status to penicillin; Z88.5 Allergy status to narcotic agent; Z88.8 Allergy status to other drugs, medicaments and biological substances; F17.210 Nicotine dependence, cigarettes, uncomplicated
CPT/HCPCS: 36415; 72193; 76857; 76870; 80048; 81001; 85025; 85652; 86140; 87040; 87070; 87086; 87491; 87591; 93976; 99284; Q9967

== ENCOUNTER → 2019-06-01 | Outpatient (REF) | payer OTHER ==
[~2019-06-01] MED LIST changes: +CELE1CAP9; +CIPR-249 PO
[2019-06-01 17:48] LABS: HEMOGLOBIN A1c 7.3 %
[2019-06-01 17:58] LABS: BLOOD UREA NITROGEN 11 MG/DL (7-18); CARBON DIOXIDE LEVEL 32 MEQ/L (21-32); CHLORIDE LEVEL 105 MEQ/L (98-107); CREATININE FOR GFR 0.92 MG/DL (0.70-1.30); GLOMERULAR FILTRATION RATE > 60.0 (>56); GLUCOSE, FASTING 137 MG/DL (70-100); POTASSIUM SERUM 3.8 MEQ/L (3.5-5.1); SODIUM LEVEL 141 MEQ/L (136-145)
== END ==
LOC: M SFHCPLAZ 15:37
PROVIDERS: ATTEND Family Medicine
DX: E11.69 Type 2 diabetes mellitus with other specified complication (principal); C61 Malignant neoplasm of prostate

== ENCOUNTER → 2020-11-19 | Outpatient (REF) | payer OTHER ==
[~2020-11-19] MED LIST changes: -OMEP40CA2 PO; +OMEP40CA97 PO; -OXYB10TA2 PO; +OXYB10TA23 PO
[2020-11-19 18:13] LABS: APPEARANCE, URINE CLEAR (CLEAR); BACTERIA, URINE AUTO NEGATIVE (NEGATIVE); BILIRUBIN, URINE AUTO NEGATIVE (NEGATIVE); BLOOD, URINE BLOOD 2+ (NEGATIVE); COLOR, URINE YELLOW (YELLOW); GLUCOSE, URINE (UA) AUTO NEGATIVE (NEGATIVE); KETONE, URINE AUTO 1+ mg/dL (NEGATIVE); LEUKOCYTE ESTERASE, URINE AUTO TRACE (NEGATIVE); MUCUS, URINE SMALL (NEGATIVE); NITRITE, URINE AUTO NEGATIVE (NEGATIVE); PROTEIN, URINE AUTO 1+ mg/dL (NEGATIVE); RBC, URINE AUTO 143 /HPF (0-3); SPECIFIC GRAVITY URINE AUTO 1.025 (1.002-1.035); SQUAMOUS EPITHELIAL CELL UR AU 0 /HPF (0-6); WBC, URINE AUTO 14 /HPF (0-3)
== END ==
LOC: M SMT 16:57
PROVIDERS: ATTEND Nurse Practitioner Family
DX: R30.0 Dysuria (principal)

== ENCOUNTER → 2021-12-23 | Outpatient (CLI) | payer OTHER ==
[~2021-12-23] MED LIST changes: +OMEP40CA4 PO; -OMEP40CA97 PO
[2021-12-23 17:48] LABS: BLOOD UREA NITROGEN 14 MG/DL (7-18); CALCIUM LEVEL 9.3 MG/DL (8.8-10.2); CARBON DIOXIDE LEVEL 30 MEQ/L (21-32); CHLORIDE LEVEL 106 MEQ/L (98-107); CREATININE FOR GFR 0.86 MG/DL (0.70-1.30); GLOMERULAR FILTRATION RATE > 60.0 (>49); GLUCOSE, FASTING 85 MG/DL (70-100); POTASSIUM SERUM 4.4 MEQ/L (3.5-5.1); SODIUM LEVEL 143 MEQ/L (136-145)
== END ==
LOC: M PLALAB 15:08
PROVIDERS: ATTEND Family Medicine
DX: R34 Anuria and oliguria (principal)

== ENCOUNTER → 2022-01-16 | Outpatient (CLI) | payer OTHER ==
[~2022-01-16] MED LIST changes: +BUDE10.7 INH; +ELIQ5TAB PO; +LISI2.5T9 PO; +OMEP40CA5 PO; +OXYC1TAB23 PO; +OZEM2INJ SC; +PRAV10TA3 PO; +SEMA1PEN2 SC; +TREL1AER INH
[2022-01-16 17:46] LABS: HEMOGLOBIN A1c 7.1 %
== END ==
LOC: M PLALAB 15:36
PROVIDERS: ATTEND Family Medicine
DX: E11.69 Type 2 diabetes mellitus with other specified complication (principal)

== ENCOUNTER 2022-01-23 16:09 | Emergency (ER) | payer OTHER ==
[~2022-01-23] VITALS: Ht 177.8 cm; Wt 107.9 kg
[~2022-01-23 16:09] MED LIST changes: -LEUP1INJ4 IM
[2022-01-23] MEDS ORDERED: LEUP1INJ4 IM (16:34)
[2022-01-23 17:38] LABS: BASO % 0.6 % (0.0-1.0); EOS # 0.2 10^3/uL (0.0-0.5); EOS % 2.8 % (0.0-3.0); HEMATOCRIT 40.9 % (42.0-52.0); HEMOGLOBIN 13.2 g/dl (13.5-17.5); LYMPH # 1.6 10^3/uL (1.5-5.0); LYMPH % 25.5 % (24.0-44.0); MEAN CORPUSCULAR HEMOGLOBIN 30.4 pg (27.0-33.0); MEAN CORPUSCULAR HGB CONC 32.3 g/dl (32.0-36.5); MEAN CORPUSCULAR VOLUME 94.2 fl (80.0-96.0); MONO # 0.5 10^3/uL (0.0-0.8); MONO % 8.1 % (2.0-8.0); NEUTROPHILS # 3.9 10^3/uL (1.5-8.5); NEUTROPHILS % 62.7 % (36.0-66.0); PLATELET COUNT, AUTOMATED 232 10^3/uL (150-450); RED BLOOD COUNT 4.34 10^6/uL (4.30-6.10); WHITE BLOOD COUNT 6.2 10^3/uL (4.0-10.0)
[2022-01-23 17:46] LABS: INR 0.96; PROTHROMBIN TIME 13.2 SECONDS (12.7-14.5)
[2022-01-23 17:47] LABS: PARTIAL THROMBOPLASTIN TIME 33.3 SECONDS (25.9-37.0)
[2022-01-23 17:50] LABS: CK-MB VALUE MASS 1.9 NG/ML (<3.6); MB/CK RELATIVE INDEX 1.76 (< OR =4)
[2022-01-23 18:14] LABS: ALBUMIN 3.2 GM/DL (3.2-5.2); ALT/SGPT 22 U/L (12-78); BILIRUBIN,DIRECT < 0.1 MG/DL (0.0-0.2); BILIRUBIN,TOTAL 0.2 MG/DL (0.2-1.0); BLOOD UREA NITROGEN 11 MG/DL (7-18); CALCIUM LEVEL 9.1 MG/DL (8.8-10.2); CARBON DIOXIDE LEVEL 29 MEQ/L (21-32); CHLORIDE LEVEL 108 MEQ/L (98-107); CREATININE FOR GFR 0.82 MG/DL (0.70-1.30); FREE T4 0.98 NG/DL (0.76-1.46); GLOMERULAR FILTRATION RATE > 60.0 (>49); GLUCOSE, FASTING 102 MG/DL (70-100); LIPASE 69 U/L (73-393); POTASSIUM SERUM 4.3 MEQ/L (3.5-5.1); SODIUM LEVEL 143 MEQ/L (136-145); TOTAL PROTEIN 6.6 GM/DL (6.4-8.2)
[2022-01-23 18:45] VITALS: BP 148/92
[2022-01-23] MEDS ORDERED: ISOVUE-370 76% 100ML VIAL As Ordered ONE (18:53)
[2022-01-23 19:16] LABS: CK-MB VALUE MASS 1.6 NG/ML (<3.6); MB/CK RELATIVE INDEX 1.9 (< OR =4)
== END 2022-01-23 20:43 | disposition left against medical advice (07) ==
LOC: M ED 16:09
DX: R10.9 Unspecified abdominal pain (principal); Z53.9 Procedure and treatment not carried out, unspecified reason; E11.9 Type 2 diabetes mellitus without complications; Z86.711 Personal history of pulmonary embolism; Z86.718 Personal history of other venous thrombosis and embolism; J44.9 Chronic obstructive pulmonary disease, unspecified; Z87.442 Personal history of urinary calculi; Z85.46 Personal history of malignant neoplasm of prostate; Z82.49 Family history of ischemic heart disease and other diseases of the circulatory system; Z79.01 Long term (current) use of anticoagulants; Z79.899 Other long term (current) drug therapy; Z88.0 Allergy status to penicillin; Z88.8 Allergy status to other drugs, medicaments and biological substances; Z88.5 Allergy status to narcotic agent; Z91.89 Other specified personal risk factors, not elsewhere classified
CPT/HCPCS: 71275; 80048; 80076; 82550; 82553; 83690; 84439; 84443; 85025; 85610; 85730; 93005; 93041; 93971; 94760; 99285; Q9967

== ENCOUNTER → 2022-01-23 | Outpatient (CLI) | payer OTHER ==
[~2022-01-23] MED LIST changes: +LEUP1INJ4 IM
== END ==
LOC: M LABSMTC 10:36
PROVIDERS: ATTEND Anesthesiology
DX: Z01.812 Encounter for preprocedural laboratory examination (principal); Z20.822 Contact with and (suspected) exposure to COVID-19

== ENCOUNTER → 2022-03-22 | Outpatient (CLI) | payer OTHER ==
[~2022-03-22] MED LIST changes: +LEUP1INJ4 IM; +OXYC7.5T3 PO; +PEPC1TAB5 PO
== END ==
LOC: M LABSMTC 10:19
PROVIDERS: ATTEND Anesthesiology
DX: Z01.812 Encounter for preprocedural laboratory examination (principal); Z20.822 Contact with and (suspected) exposure to COVID-19

== ENCOUNTER → 2022-05-07 | Outpatient (CLI) | payer OTHER ==
[2022-05-07 14:39] LABS: HEMOGLOBIN A1c 6.6 %
[2022-05-07 14:44] LABS: ALBUMIN 3.5 GM/DL (3.2-5.2); ALT/SGPT 21 U/L (12-78); BILIRUBIN,TOTAL 0.2 MG/DL (0.2-1.0); BLOOD UREA NITROGEN 9 MG/DL (7-18); CARBON DIOXIDE LEVEL 27 MEQ/L (21-32); CHLORIDE LEVEL 106 MEQ/L (98-107); CHOLESTEROL LEVEL 119 MG/DL (<200); CREATININE FOR GFR 0.83 MG/DL (0.70-1.30); GLOMERULAR FILTRATION RATE > 60.0 (>49); GLUCOSE, FASTING 102 MG/DL (70-100); HDL CHOLESTEROL 35 MG/DL (>40); LDL CHOLESTEROL 55 MG/DL (<100); NON-HDL-C 84 MG/DL; POTASSIUM SERUM 4.5 MEQ/L (3.5-5.1); SODIUM LEVEL 137 MEQ/L (136-145); TOTAL PROTEIN 6.9 GM/DL (6.4-8.2); TRIGLYCERIDES LEVEL 143 MG/DL (<150)
== END ==
LOC: M PLALAB 10:54
PROVIDERS: ATTEND Physician Assistant
DX: E11.69 Type 2 diabetes mellitus with other specified complication (principal); Z12.5 Encounter for screening for malignant neoplasm of prostate

== ENCOUNTER → 2022-06-14 | Outpatient (CLI) | payer OTHER | LOC: M LABSMTC 11:54 | PROVIDERS: ATTEND Anesthesiology | DX: Z01.812 Encounter for preprocedural laboratory examination (principal); Z20.822 Contact with and (suspected) exposure to COVID-19 ==

== ENCOUNTER 2022-06-17 08:01 | Day surgery (SDC) | payer OTHER ==
[~2022-06-17] VITALS: Ht 177.8 cm; Wt 99.1 kg
[~2022-06-17 08:01] MED LIST changes: +NS 1,000 ML IV ONE
[2022-06-17] MEDS ORDERED: LIDOCAINE 2% 100MG/5ML SDV (FOR ANES.) As Ordered ONE (08:55)
[2022-06-17] MEDS ORDERED: propofoL 200 MG/20 ML VIAL As Ordered ONE ×3 (08:55→09:23)
[2022-06-17] MEDS ORDERED: GLYCOPYRROLATE INJ 0.2 MG/ML 2 ML VIAL As Ordered ONE (09:23)
[2022-06-17 10:01] VITALS: BP 110/64
== END 2022-06-17 10:03 | disposition home or self-care (01) ==
LOC: M OPP 08:01
PROVIDERS: ATTEND Surgery
DX: Z86.010 Personal history of colon polyps (principal); D12.3 Benign neoplasm of transverse colon; D12.4 Benign neoplasm of descending colon; K64.1 Second degree hemorrhoids; K29.70 Gastritis, unspecified, without bleeding; R13.10 Dysphagia, unspecified; Z88.0 Allergy status to penicillin; Z88.3 Allergy status to other anti-infective agents; Z88.8 Allergy status to other drugs, medicaments and biological substances; Z91.048 Other nonmedicinal substance allergy status; Z79.01 Long term (current) use of anticoagulants; Z79.84 Long term (current) use of oral hypoglycemic drugs; Z79.891 Long term (current) use of opiate analgesic; Z79.899 Other long term (current) drug therapy; E11.9 Type 2 diabetes mellitus without complications; E78.00 Pure hypercholesterolemia, unspecified; J44.9 Chronic obstructive pulmonary disease, unspecified; Z86.718 Personal history of other venous thrombosis and embolism; Z86.711 Personal history of pulmonary embolism; Z85.46 Personal history of malignant neoplasm of prostate; Z92.3 Personal history of irradiation

== ENCOUNTER → 2022-11-04 | Outpatient (CLI) | payer OTHER ==
[~2022-11-04] MED LIST changes: -NS 1,000 ML IV ONE
[2022-11-04 18:06] LABS: HEMOGLOBIN A1c 5.9 % (4.0-6.0)
[2022-11-04 18:11] LABS: BASO # 0.1 10^3/uL (0.0-0.2); BASO % 0.9 % (0.0-1.0); EOS # 0.2 10^3/uL (0.0-0.5); EOS % 2.3 % (0.0-3.0); HEMATOCRIT 45.9 % (42.0-52.0); HEMOGLOBIN 14.5 g/dl (13.5-17.5); LYMPH # 2.3 10^3/uL (1.5-5.0); MEAN CORPUSCULAR HEMOGLOBIN 30.7 pg (27.0-33.0); MEAN CORPUSCULAR HGB CONC 31.6 g/dl (32.0-36.5); MEAN CORPUSCULAR VOLUME 97.2 fl (80.0-96.0); MONO # 0.6 10^3/uL (0.0-0.8); MONO % 7.7 % (2.0-8.0); NEUTROPHILS # 4.9 10^3/uL (1.5-8.5); NEUTROPHILS % 60.9 % (36.0-66.0); PLATELET COUNT, AUTOMATED 237 10^3/uL (150-450); RED BLOOD COUNT 4.72 10^6/uL (4.30-6.10); WHITE BLOOD COUNT 8.1 10^3/uL (4.0-10.0)
[2022-11-04 18:12] LABS: ALBUMIN 3.8 G/DL (3.2-5.2); ALKALINE PHOSPHATASE 57 U/L (46-116); ALT/SGPT 17 U/L (7.0-40); AST/SGOT 18 U/L (<34); BILIRUBIN,TOTAL 0.5 MG/DL (0.3-1.2); BLOOD UREA NITROGEN 17 MG/DL (9-23); CALCIUM LEVEL 9.3 MG/DL (8.3-10.6); CARBON DIOXIDE LEVEL 31 MMOL/L (20-31); CHLORIDE LEVEL 105 MMOL/L (98-107); CREATININE FOR GFR 0.86 MG/DL (0.70-1.30); GLOMERULAR FILTRATION RATE > 60.0 (>49); GLUCOSE, FASTING 92 MG/DL (74-106); POTASSIUM SERUM 4.8 MMOL/L (3.5-5.1); SODIUM LEVEL 142 MMOL/L (136-145); TOTAL PROTEIN 6.9 G/DL (5.7-8.2)
== END ==
LOC: M PLALAB 16:00
PROVIDERS: ATTEND Physician Assistant
DX: E11.69 Type 2 diabetes mellitus with other specified complication (principal)

== ENCOUNTER → 2022-11-16 | Outpatient (CLI) | payer OTHER | LOC: M PLAIMG 08:29 | PROVIDERS: ATTEND Physician Assistant | DX: I77.819 Aortic ectasia, unspecified site (principal); I70.0 Atherosclerosis of aorta; I25.10 Atherosclerotic heart disease of native coronary artery without angina pectoris; K76.0 Fatty (change of) liver, not elsewhere classified; N28.1 Cyst of kidney, acquired; M51.34 Other intervertebral disc degeneration, thoracic region; J84.10 Pulmonary fibrosis, unspecified ==

== ENCOUNTER → 2023-07-20 | Outpatient (CLI) | payer OTHER ==
[~2023-07-20] MED LIST changes: +CELE0.09; -CELE1CAP9
== END ==
LOC: M PLAIMG 12:17
PROVIDERS: ATTEND Physician Assistant
DX: R06.02 Shortness of breath (principal)

== ENCOUNTER → 2023-11-01 | Outpatient (CLI) | payer OTHER ==
[2023-11-01 13:49] LABS: BASO % 0.5 % (0.0-1.0); EOS # 0.2 10^3/uL (0.0-0.5); HEMATOCRIT 43.9 % (42.0-52.0); HEMOGLOBIN 14.3 g/dl (13.5-17.5); LYMPH # 2.1 10^3/uL (1.5-5.0); LYMPH % 28.2 % (24.0-44.0); MEAN CORPUSCULAR HEMOGLOBIN 31.9 pg (27.0-33.0); MEAN CORPUSCULAR HGB CONC 32.6 g/dl (32.0-36.5); MONO # 0.5 10^3/uL (0.0-0.8); MONO % 6.9 % (2.0-8.0); NEUTROPHILS # 4.5 10^3/uL (1.5-8.5); PLATELET COUNT, AUTOMATED 230 10^3/uL (150-450); RED BLOOD COUNT 4.48 10^6/uL (4.30-6.10); WHITE BLOOD COUNT 7.4 10^3/uL (4.0-10.0)
[2023-11-01 14:03] LABS: HEMOGLOBIN A1c 6.5 % (4.0-6.0)
[2023-11-01 14:14] LABS: ALBUMIN 3.5 G/DL (3.2-5.2); ALKALINE PHOSPHATASE 57 U/L (46-116); ALT/SGPT 27 U/L (7.0-40); AST/SGOT 20 U/L (<34); BILIRUBIN,TOTAL 0.2 MG/DL (0.3-1.2); BLOOD UREA NITROGEN 15 MG/DL (9-23); CALCIUM LEVEL 8.2 MG/DL (8.3-10.6); CARBON DIOXIDE LEVEL 26 MMOL/L (20-31); CHLORIDE LEVEL 112 MMOL/L (98-107); CHOLESTEROL LEVEL 72 MG/DL (<200); CHOLESTEROL RISK RATIO 3.14 (<5); CREATININE FOR GFR 0.62 MG/DL (0.70-1.30); GLOMERULAR FILTRATION RATE > 60.0 (>49); GLUCOSE, FASTING 133 MG/DL (74-106); HDL CHOLESTEROL 22.9 MG/DL (>40); LDL CHOLESTEROL 33.9 MG/DL (<100); NON-HDL-C 49.1 MG/DL; POTASSIUM SERUM 3.9 MMOL/L (3.5-5.1); SODIUM LEVEL 141 MMOL/L (136-145); TOTAL PROTEIN 6.5 G/DL (5.7-8.2); TRIGLYCERIDES LEVEL 76 MG/DL (<150)
[2023-11-01 14:16] LABS: FREE T4 1.04 NG/DL (0.89-1.76); THYROID STIMULATING HORMONE 0.688 uIU/ML (0.55-4.78)
== END ==
LOC: M PLALAB 09:01
PROVIDERS: ATTEND Physician Assistant
DX: E11.69 Type 2 diabetes mellitus with other specified complication (principal); R06.00 Dyspnea, unspecified; E66.9 Obesity, unspecified; E78.2 Mixed hyperlipidemia; Z86.711 Personal history of pulmonary embolism

== ENCOUNTER → 2025-05-29 | Outpatient (CLI) | payer OTHER ==
[~2025-05-29] MED LIST changes: +DABIGATRAN; +ENZA80TA PO; +FAMO1TAB11; +OXYC10TA12; +OXYC40TA29; +PRAD150C6; -PRAV10TA3 PO; +PRAV10TA43 PO; +SYMB16INH; +TRUL0.5I
== END ==
LOC: M ONCR 15:51
PROVIDERS: ATTEND General Practice
DX: C79.51 Secondary malignant neoplasm of bone (principal); C77.5 Secondary and unspecified malignant neoplasm of intrapelvic lymph nodes; C61 Malignant neoplasm of prostate; R97.21 Rising PSA following treatment for malignant neoplasm of prostate; Z90.79 Acquired absence of other genital organ(s)

== ENCOUNTER → 2025-07-26 | Outpatient (CLI) | payer OTHER ==
[~2025-07-26] MED LIST changes: +DEXA4TA PO; +ONDA-83 PO
[2025-07-26] MEDS: PLUVICTO (LU-177 VIPIVOTIDE TETRAXETAN) 27 MCI/ML VL (CHARGE IS PER MCI) IV STA (14:20)
== END ==
LOC: M ONCR 13:36
PROVIDERS: ATTEND General Practice
DX: C61 Malignant neoplasm of prostate (principal); C79.51 Secondary malignant neoplasm of bone
CPT/HCPCS: 77300; 79101; A9607